=== PATIENT | female | born 1990 | race Caucasian/White ===

== ENCOUNTER 2017-05-20 22:51 | Emergency (ER) | payer SELFPAY ==
[2017-05-20 23:01] VITALS: BP 124/67
[2017-05-20] MEDS ORDERED: BUPIVACAINE HCL 0.5 % INJ/PF 30 ML SDV INJ ONE (23:18)
[2017-05-20] MEDS ORDERED: PENICILLIN V POTASSIUM 500 MG TABLET PO ONE (23:18)
--- NOTE | 2017-05-20 23:19 | ER Document Report ---
ED Oral Problem - General Chief Complaint: Toothache Stated Complaint: TOOTHACHE Time Seen by Provider: 05/20/17 23:15 Notes: Patient is a 27-year-old female presents emergency department complaining of right upper jaw tooth pain. Patient states that she had a root canal done a couple years ago and every once while she has a flareup of pain that requires treatment with antibiotics. Patient states that she is followed with tenderness in the area but states that it would cost her $4000 out of pocket to have it fixed. Otherwise she denies any foul drainage or foul odor from the site. She has been taking Motrin at home with improvement in her symptoms. She denies any difficulty swallowing, facial swelling, fever or chills. TRAVEL OUTSIDE OF THE [place] IN LAST 30 DAYS: No - Related Data Allergies/Adverse Reactions: No Known Allergies Allergy (Unverified 05/20/17 23:10) Past Medical History - Social History Smoking Status: Current Every Day Smoker Family History: Reviewed & Not Pertinent Review of Systems - Review of Systems Constitutional: No symptoms reported EENT: See HPI Cardiovascular: No symptoms reported Respiratory: No symptoms reported -: Yes All other systems reviewed and negative Physical Exam - Vital signs Vitals: Temp Pulse Resp BP Pulse Ox 97.8 F 61 18 124/67 98 05/20/17 23:00 05/20/17 23:00 05/20/17 23:00 05/20/17 23:00 05/20/17 23:00 - Notes Notes: PHYSICAL EXAM GENERAL: Alert, interacts well. HEENT: NCAT, no facial swelling MMM, Uvula midline. Airway patent. No evidence of tonsillar enlargement, peritonsillar abscess, retropharyngeal abscess. Tenderness over 2 and 3 without surrounding gingival inflammation, abscess. LUNGS: Clear to auscultation bilaterally, no wheezes, rales, or rhonchi. No respiratory distress. HEART: Regular rate and rhythm. No murmurs, gallops, or rubs. NEUROLOGICAL: Alert and oriented x4. Normal speech. Course - Re-evaluation Re-evalutation: 05/20/17 23:41 Patient is a 27-year-old female is hemodynamically stable, no acute distress afebrile. Presentation is most consistent with likely an infected tooth. Airway is patent. Vitals within normal limits. Patient is able swallow without any difficulty. There is no significant facial swelling. Patient will be started on antibiotics. Patient did receive a 5 cc dental block with complete resolution of her pain and no complications. I've instructed to follow -up with dentistry as earliest ability for definitive management. Return precautions and follow-up recommendations have been discussed at length. - Vital Signs Vital signs: Temp Pulse Resp BP Pulse Ox 97.8 F 61 18 124/67 98 05/20/17 23:00 05/20/17 23:00 05/20/17 23:00 05/20/17 23:00 05/20/17 23:00 Procedures - Additional Procedures Dental block Additional Procedures: Other Discharge - Discharge Clinical Impression: Toothache Condition: Good Disposition: HOME, SELF-CARE Instructions: Penicillin V K ([facility]), Toothache ([facility]) Additional Instructions: You have been seen for dental pain. It is very important that you follow-up with a dentist for definitive care. Please return if you develop fever greater than 101, swelling in your face, vomiting, difficulty breathing or swallowing, or any other symptoms that are concerning to you. For pain you should take ibuprofen 600 mg every 6 hours as needed. Prescriptions: Ibuprofen [Motrin 600 Mg Tablet] 600 mg PO TID #15 tablet Penicillin V Potassium [Penicillin Vk 500 mg Tablet] 500 mg PO TID 7 Days #21 tablet
== END 2017-05-21 | disposition home or self-care (01) ==
LOC: ER 22:51
DX: K08.89 Other specified disorders of teeth and supporting structures (principal); R68.84 Jaw pain; F17.200 Nicotine dependence, unspecified, uncomplicated
CPT/HCPCS: 99282